=== PATIENT | male | born 1995 | race Caucasian/White ===

== ENCOUNTER 2024-10-05 13:12 | Emergency (ER) | payer BC, SELFPAY ==
[2024-10-05 13:13] VITALS: BMI 45.4
[2024-10-05 13:31] VITALS: BP 145/88; PULSE 100; RESP 18; TEMP 37.2; O2SAT 99
--- NOTE | 2024-10-05 13:42 | EKG_ITS ---
[facility] Test Date: 2024-10-05 Pat Name: ETHAN DELONG Department: Room: - Gender: Male Director Telehealth: : 1995 Requested By: Harpreet Ohara Order Number: [id number] Reading MD: Harpreet Ohara Measurements Intervals [place] Rate: 95 P: 48 MI: 112 QRS: 56 QRSD: 98 T: 26 QT: 358 QTc: 451 Interpretive Statements SINUS RHYTHM WITH SHORT MI INTERVAL POSSIBLE RIGHT VENTRICULAR CONDUCTION DELAY [RSR (QR) IN V1/V2] No previous ECG available for comparison /store/[email or web address]/[id number].pdf
--- NOTE | 2024-10-05 13:43 | PD.EDARRY ---
ED Arrhythmia Palp. RME/HPI General Chief Complaint: General Adult/Misc Complain Stated Complaint: ANTONINO BLOOD PRESSURE Source: patient Arrival date/time: 10/05/24 13:12 29-year-old male with no known medical history presents to the emergency room with a chief complaint of palpitations and shakiness. Patient states he was at work examination and they told him his blood pressure was elevated. Mode of arrival: ambulatory Limitations: no limitations Related Data Allergies Allergy/AdvReac Type Severity Reaction Status Date / Time No Known Allergies Allergy Verified 10/05/24 13:15 Past Medical History Social History SMOKING STATUS: Never smoker ED Exam General Limitations: Present no limitations General appearance: Present alert and in no apparent distress Head Head exam: Present atraumatic Eye Eye exam: Present normal appearance, PERRL and EOMI ENT ENT exam: Present normal exam, normal oropharynx and mucous membranes moist Neck Neck exam: Present normal inspection, full ROM and trachea midline Chest Chest inspection: Present normal inspection and symmetric chest wall rise Respiratory Respiratory exam: Present normal lung sounds bilaterally Cardiovascular Cardiovascular exam: Present regular rate, normal rhythm and normal heart sounds Abdominal Exam Abdominal exam: Present soft and normal bowel sounds Extremities Exam Extremities exam: Present normal inspection and full ROM Back Exam Back exam: Present normal inspection and full ROM Neurological Exam Neurological exam: Present alert, oriented X3 and CN II-XII intact Psychiatric Psychiatric exam: Present normal affect and normal mood Skin Skin exam: Present warm, dry, intact and normal color Course Quality Measures none Orders Category Date Time Status EKG (ED ONLY) *Do not use* NOW Care 10/05/24 13:42 Active EKG (ED Only) Stat Exams 10/05/24 13:42 Ordered B-Type Natriuretic Peptide Stat Lab 10/05/24 13:42 Ordered CBC Stat Lab 10/05/24 13:42 Ordered Comprehensive Metabolic Panel Stat Lab 10/05/24 13:42 Ordered Troponin I Stat Lab 10/05/24 13:42 Ordered Vital Signs Vital signs: Vital Signs Temperature 99 F 10/05/24 13:31 Pulse Rate 100 10/05/24 13:31 Respiratory Rate 18 10/05/24 13:31 Blood Pressure 145/88 H 10/05/24 13:31 Pulse Oximetry (%) 99 10/05/24 13:31 Oxygen Delivery Method Room Air 10/05/24 13:31 O2 saturation 99% within normal limits Procedures -ED EKG Interpretation #1: Date of EK10/06/24 Rate: 95 EKG Impression: Normal sinus rhythm Arrhythmia/Palpitations MDM Narrative MDM Narrative:: 29-year-old male with no known medical history presents to the emergency room with a chief complaint of palpitations and shakiness. Patient states he was at work examination and they told him his blood pressure was elevated. Patient is hemodynamically stable and in no apparent distress. Patient is afebrile nontachycardic nontachypneic. Physical examination shows a strong and regular rhythm. The patient has an S1 and S2 that is noted there are no murmurs no gallops no clicks. Lung sounds are clear bilaterally there is no wheezing or any abnormal breath sounds. An EKG was completed and shows normal sinus rhythm at [address] deviation. EKG CBC CMP and troponin were within normal limits. Patient was educated that his blood pressure was elevated during his visit here and that he will need to follow-up with his primary care provider for further blood pressure management. Patient was discharged and educated to follow-up with primary care provider in the next 24 to 48 hours and return to the emergency room for any evidence of worsening signs or symptoms Patient data External records reviewed:: [facility] previous records Clinical information provided by:: patient Social determinants that could affect healthcare access:: none Patient has the following chronic illnesses:: No chronic illness How is presenting disease/condition affected by chronic disease/condition?: no chronic disease Evaluation data The following diagnostics were reviewed and interpreted by me:: lab results and radiology exam(s) Lab and/or radiology exams considered but not ordered:: Labs and radiology exams considered and ordered Interpretation Summary: N/A Medications / Prescriptions Medications or Prescriptions considered but not ordered:: No medication given Medication administrations:: No medication given Consultations Consultation(s) initiated? (list below): No Diagnosis Differential diagnosis arrhythmia/palpitations: palpitations, anxiety, sinus tachycardia and other (Hypertensive urgency/hypertensive emergency) Most likely diagnosis given after review of the tests above:: Chest pain Admission Indicated Admission indicated?: not indicated Admission Request Was there a request for admission?: No Disposition Plan Disposition Plan: Discharge Discharge Attestation Discharge Attestation: The patient and all family members were given an opportunity to ask questions and understood the discharge instructions. Discharge instructions specifically effects, indications for sooner follow up or return to the emergency department, and the expected course of current diagnosis. Patient condition: Stable Discharge Plan Plan Patient Disposition: HOME (Self Care) Discharge Disposition comment: Stable Prescriptions/Referrals Referrals: No Primary/Family,Physician [Primary Care Provider] - In 1 week Problem List Clinical Impression: Chest pain Patient/Caregiver Discharge Instructions Education Materials: ED Chest Pain, Noncardiac Additional Instructions: Please follow-up with your primary care provider in the next 24 to 48 hours At this time your cardiac examination was within normal limits Please follow-up with your primary care provider for management of your high blood pressure For any evidence of worsening signs or symptoms return to the emergency room immediately Print Language: [place] Stand Alone Forms: Karla Award Info., Patient Portal Info Letter PA/KIAN Supervising Physician LUISA/KIAN Supervising Physician: Dr Kearns
[2024-10-05 14:18] LABS: Basophils % (Auto) 1 % (0-2.5); Eosinophils % (Auto) 1 % (0-10); Hematocrit 47.8 % (41.0-53.0); Hemoglobin 17.1 g/dL (13.5-16.0); Immature Granulocytes % (Auto) 0 % (0-0); Immature Granulocytes Auto 0.01 Thou/mm3 (0.00-0.00); Lymphocytes # (Auto) 2.1 Thou/mm3 (1.0-4.8); Lymphocytes % (Auto) 33 % (10-50); Mean Corpuscular HGB Conc 35.8 g/dl (31.0-37.0); Mean Corpuscular Hemoglobin 29.6 pg (25.0-35.0); Mean Corpuscular Volume 83 fL (80-100); Monocytes # (Auto) 0.5 Thou/mm3 (0.0-0.8); Monocytes % (Auto) 7 % (0-12); Neutrophils # (Auto) 3.7 Thou/mm3 (1.8-7.7); Neutrophils % (Auto) 58 % (37-80); Nucleated Red Blood Cell % 0 /100 WBC (0); Platelet Count 274 Thou/mm3 (140-440); RDW Standard Deviation 35.9 fL (35.1-43.9); Red Blood Count 5.77 Miln/mm3 (4.50-5.90); White Blood Count 6.4 Thou/mm3 (3.8-10.6)
[2024-10-05 14:34] LABS: Alanine Aminotransferase 63 U/L (10-49); Albumin, Serum 4.5 gm/dL (3.5-5.0); Albumin/Globulin Ratio 1.9 (1.2-2.2); Alkaline Phosphatase 77 U/L (46-116); Anion Gap 13 (7-16); Aspartate Amino Transferase 40 U/L (0-34); BUN/Creatinine Ratio 8 Ratio (12-20); Bilirubin,Total 0.6 mg/dL (0.3-1.2); Blood Urea Nitrogen 9 mg/dL (9-23); Calcium 8.8 mg/dL (8.3-10.6); Calcium (Corrected) 8.8 mg/dL (8.5-10.1); Carbon Dioxide 26.9 mMol/L (20.0-31.0); Chloride 104 mMol/L (98-107); Creatinine (Component) 1.1 mg/dL (0.6-1.3); Estimated Creatinine Clearance 147.7 mL/min (>60); Globulin 2.4 gm/dL (2.3-3.5); Glucose 101 mg/dL (74-106); Osmolality,Calculated 285 (275-295); Potassium 3.5 mMol/L (3.4-5.1); Sodium 144 mMol/L (136-145); Total Protein 6.9 gm/dL (5.7-8.2); Troponin I < 0.002 ng/mL (0.0-0.045); eGFR > 60 See Note
[2024-10-05 14:53] LABS: B-Type Natriuretic Peptide 21 pg/mL (0-100)
== END 2024-10-05 16:03 | disposition home or self-care (01) ==
PROVIDERS: Nurse Practitioner Family; Emergency Provider Emergency Medicine
DX: R07.9 Chest pain, unspecified (principal); R00.2 Palpitations
CPT/HCPCS: 36415; 80053; 83880; 84484; 85025; 93005; 99283